=== PATIENT | female | born 1955 | race Caucasian/White ===

== ENCOUNTER → 2018-02-08 | Outpatient (CLI) | payer OTHER ==
[~2018-02-08] MED LIST: ACETAMINOPHEN-1 EAC1 PO; MOBIC7.5 MG PO; OMEPRAZOLE10 MG; PREMPRO 0.3 MG1 EACH
== END ==
LOC: RAD 09:46
DX: Z12.31 Encounter for screening mammogram for malignant neoplasm of breast (principal)

== ENCOUNTER → 2018-06-21 | Outpatient (CLI) | payer OTHER | LOC: ULTRA 09:05 | DX: R68.89 Other general symptoms and signs (principal) ==

== ENCOUNTER → 2019-02-14 | Outpatient (CLI) | payer OTHER | LOC: BC 10:13 | DX: Z12.31 Encounter for screening mammogram for malignant neoplasm of breast (principal) ==

== ENCOUNTER → 2020-03-13 | Outpatient (CLI) | payer OTHER | LOC: BC 09:15 | PROVIDERS: ATTEND Nurse Practitioner | DX: Z12.31 Encounter for screening mammogram for malignant neoplasm of breast (principal) ==